=== PATIENT | male | born 2005 | race Caucasian/White ===

== ENCOUNTER 2023-03-28 21:21 | Emergency (ER) | payer BC ==
[2023-03-28 21:29] VITALS: BP 120/74
[2023-03-28 22:00] LABS: BASO% 0.2 % (0-3); EOS% 0.2 % (0-8); HEMATOCRIT 40.6 % (39.0-50.0); HEMOGLOBIN 13.7 g/dl (14.0-18.0); IMMATURE GRANULOCYTES 0.1 % (0.0-5.0); LYMPH% 8.5 % (15-41); MEAN CORPUSCULAR HGB 31.7 pG CALC (26.0-32.0); MEAN CORPUSCULAR HGB CONC 33.7 g/dL CAL (32.0-36.0); MONO% 7.1 % (2-13); NEUT# 11.51 thou/uL (1.82-7.42); NEUT% 83.9 % (42-76); RED BLOOD COUNT 4.32 mill/uL (4.70-6.10); RED CELL DISTRI WIDTH 12.3 % (11.5-15.5)
[2023-03-28 22:07] LABS: ALBUMIN 4.5 g/dL (3.2-5.0); ALKALINE PHOSPHATASE 74 u/l (38-126); ANION GAP 11 (6-22 (CALC)); BILIRUBIN, TOTAL 0.5 mg/dL (0.2-1.3); BUN 12 mg/dL (8-21); BUN/CREATININE RATIO 14 (12-20 (CALC)); CARBON DIOXIDE 29 mmol/l (22-30); CHLORIDE 100 mmol/l (95-108); CREATININE 0.9 mg/dL (0.7-1.3); GFR FOR AFR.AMER. > 60 ML/MIN (>=60 (CALC)); GFR OTHER RACES > 60 ML/MIN (>=60 (CALC)); POTASSIUM 3.8 mmol/l (3.5-5.1); SGOT/AST 38 u/l (17-59); SODIUM 137 mmol/l (137-146); TOTAL PROTEIN 7.6 g/dL (6.3-8.2)
[2023-03-28] MEDS ORDERED: ONDANSETRON4 MG PO (22:48)
[2023-03-28 22:49] VITALS: BP 120/74
== END 2023-03-28 22:57 | disposition home or self-care (01) | DRG 392 ==
LOC: ED 21:21
PROVIDERS: Family Medicine
DX: A08.4 Viral intestinal infection, unspecified (principal); Z20.822 Contact with and (suspected) exposure to COVID-19

== ENCOUNTER 2024-02-14 16:20 | Emergency (ER) | payer BC ==
[~2024-02-14] VITALS: Ht 177.8 cm; Wt 68.0 kg
[~2024-02-14 16:20] MED LIST: ONDANSETRON4 MG PO
[2024-02-14] MEDS ORDERED: DiphenhydrAMINE HCL 50 MG/ML SDV IV ONE (16:55)
[2024-02-14] MEDS ORDERED: SODIUM CHLORIDE 0.9% 1,000 ML IV ONE (16:55)
[2024-02-14] MEDS ORDERED: KETOROLAC TROMETHAMINE 30 MG/ML SDV IV ONE (16:55)
[2024-02-14] MEDS ORDERED: METOCLOPRAMIDE HCL 10 MG/2 ML SDV IV ONE (16:55)
[2024-02-14 16:56] VITALS: BP 107/72
[2024-02-14 17:00] VITALS: BP 110/68
[2024-02-14 17:06] LABS: BASO% 0.3 % (0-3); HEMATOCRIT 43.4 % (39.0-50.0); HEMOGLOBIN 14.8 g/dl (14.0-18.0); IMMATURE GRANULOCYTES 0.1 % (0.0-5.0); MEAN CORPUSCULAR HGB 32.4 pG CALC (26.0-32.0); MEAN CORPUSCULAR HGB CONC 34.1 g/dL CAL (32.0-36.0); MONO% 6.5 % (2-13); NEUT# 12.45 thou/uL (1.82-7.42); NEUT% 79.1 % (42-76); RED BLOOD COUNT 4.57 mill/uL (4.70-6.10); RED CELL DISTRI WIDTH 11.8 % (11.5-15.5)
[2024-02-14] MEDS ORDERED: MAGNESIUM SULFATE HEPTAHYDRATE 50 ML IV ONE (17:10)
[2024-02-14 17:19] LABS: ALBUMIN 4.6 g/dL (3.2-5.0); BILIRUBIN, TOTAL 0.6 mg/dL (0.2-1.3); CREATININE 0.8 mg/dL (0.7-1.3); TOTAL PROTEIN 8.3 g/dL (6.3-8.2)
[2024-02-14 17:20] VITALS: BP 112/76
[2024-02-14] MEDS ORDERED: AMOX/K CLAV875 M1 PO (18:15)
[2024-02-14] MEDS ORDERED: NAPROXEN500 MG PO (18:43)
[2024-02-14 18:48] VITALS: BP 112/76
== END 2024-02-14 18:54 | disposition still patient (30) | DRG 153 ==
LOC: ED 16:20
PROVIDERS: Family Medicine
DX: J01.00 Acute maxillary sinusitis, unspecified (principal)
CPT/HCPCS: J3475